=== PATIENT | male | born 1985 | race American Indian/Alaskan Native ===

== ENCOUNTER 2025-05-06 15:52 | Emergency (ER) | payer OTHER ==
[2025-05-06] MEDS: Ondansetron 4 MG Tab.DIS PO ONE (17:12)
== END 2025-05-06 17:54 | disposition home or self-care (01) ==
LOC: FB.ED 15:52
DX: M71.122 Other infective bursitis, left elbow (principal)
CPT/HCPCS: 10060; 87070; 87075; 87205; 96372; 99283; J0696; J2003; Q0162; 87077; 87186

== ENCOUNTER 2025-05-07 12:26 | Emergency (ER) | payer OTHER ==
[2025-05-07] MEDS: Amoxicillin/Clavulanate K 500-125 MG Tab PO ONE (13:16)
[2025-05-07 13:19] LABS: BASOPHILS ABSOLUTE AUTO 0.1 x10-3/uL (0.0-0.3); BASOPHILS PERCENT AUTO 0.8 % (0.3-3.8); EOSINOPHILS ABSOLUTE AUTO 0.4 x10-3/uL (0.0-0.6); EOSINOPHILS PERCENT AUTO 3.7 % (0.1-6.8); LYMPHOCYTES ABSOLUTE AUTO 2.5 x10-3/uL (0.5-4.5); LYMPHOCYTES PERCENT AUTO 20.7 % (15.8-45.3); MEAN PLATELET VOLUME 7.6 fL (6.7-11.0); MONOCYTES ABSOLUTE AUTO 1.0 x10-3/uL (0.0-1.2); MONOCYTES PERCENT AUTO 8.3 % (5.5-15.2); NEUTROPHILS ABSOLUTE AUTO 7.9 x10-3/uL (1.7-6.9); NEUTROPHILS PERCENT AUTO 66.5 % (40.3-71.8); PLATELET COUNT,PLT 318 x10(3)uL (117-477); RED BLOOD CELL COUNT 4.63 x10(6)uL (3.90-5.90); RED CELL DISTRIBUTION WIDTH 14.5 % (12.4-15.0); WHITE BLOOD CELL COUNT,WBC 11.9 x10-3/uL (3.2-10.1)
[2025-05-07 13:21] LABS: BLOOD UREA NITROGEN,BUN 17 mg/dL (7-18); CARBON DIOXIDE,CO2 27 mmol/L (21-32); CHLORIDE,CL 101 mmol/L (100-110); CREATININE 0.8 mg/dL (0.70-1.30); EST CRCL DRUG DOSING (CG) 126.43 mL/min; ESTIMATED GFR 117 mL/min (>60); GLUCOSE RANDOM 124 mg/dL (80-116); POTASSIUM,K 3.6 mmol/L (3.5-5.3); SODIUM,NA 136 mmol/L (135-145)
[2025-05-07 13:27] LABS: A/G RATIO 0.9; ALANINE AMINOTRANSFERASE,ALT 24 U/L (12-36); ASPARTATE AMNIOTRANSFERASE,AST 14 IU/L (5-25); BILIRUBIN TOTAL 0.9 mg/dL (0.1-1.3); PROTEIN TOTAL,TP 7.4 g/dL (6.0-8.0)
== END 2025-05-07 14:30 | disposition home or self-care (01) ==
LOC: FB.ED 12:26
DX: L03.114 Cellulitis of left upper limb (principal); M70.22 Olecranon bursitis, left elbow; Z79.899 Other long term (current) drug therapy
CPT/HCPCS: 36415; 80053; 85025; 86140; 99283; A9270